=== PATIENT | male | born 1985 | race Caucasian/White ===

== ENCOUNTER 2019-04-19 22:52 | Emergency (ER) | payer SELFPAY ==
[~2019-04-19] VITALS: Ht 182.9 cm; Wt 86.2 kg
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
[2019-04-19] MEDS ORDERED: LIDOCAINE 0.5%-EPI 1:200,000 50 ML VIAL ONE (23:32)
--- NOTE | 2019-04-20 00:15 | NUR ---
Patient discharged to home in stable condition. Written and verbal after care instructions given. Patient verbalizes understanding of instruction.
[2019-04-20 00:16] VITALS: BP 119/69
== END 2019-04-20 00:17 | disposition home or self-care (01) ==
LOC: ER 22:56
DX: S01.81XA Laceration without foreign body of other part of head, initial encounter (principal); Z91.013 Allergy to seafood; W22.8XXA Striking against or struck by other objects, initial encounter; Y93.65 Activity, lacrosse and field hockey; Y92.328 Other athletic field as the place of occurrence of the external cause; Y99.8 Other external cause status
CPT/HCPCS: 12011; 99283; A6402; J3490